=== PATIENT | male | born 1965 | race Caucasian/White ===

== ENCOUNTER 2022-11-23 12:35 | Day surgery (SDC) | payer BC ==
[2022-11-23] MEDS ORDERED: Sodium Chloride 0.9(Preservative Free) 10 ML IJ ONE (12:36)
[2022-11-23] MEDS ORDERED: Depo-Medrol 40 MG/ML IM ONE (12:36)
[2022-11-23] MEDS ORDERED: DIPRIVAN 200 MG/20 ML IV ONE (14:02)
[2022-11-23] MEDS ORDERED: Lactated Ringers 1,000 ML IV ONE (14:28)
--- NOTE | 2022-11-23 14:59 | XRAY ---
Indication: Left L4-S1 transforaminal KEYSHAWN. Intraoperative fluoroscopy provided for 27 seconds. 4 digital spot image submitted for interpretation demonstrates posterior needle tips projecting over the expected left L4 and L5 nerve roots. Small amount of contrast injected for needle tip placement. Correlate with intraoperative findings/report.
--- NOTE | 2022-11-23 16:55 | XRAY ---
27 seconds of fluoroscopy was used in surgery for a left L4-S1 transforaminal KEYSHAWN.
== END 2022-11-23 14:33 | disposition home or self-care (01) ==
LOC: SDC-PAIN 12:35
PROVIDERS: ATTEND Psychiatry & Neurology Pain Medicine
DX: M54.16 Radiculopathy, lumbar region (principal)
CPT/HCPCS: 64483; 64484; 72100; 77003; J1030; J2704; Q9966